=== PATIENT | female | born 1955 | race Asian ===

== ENCOUNTER 2019-02-20 16:14 | Inpatient (IN) | payer OTHER ==
[~2019-02-20] VITALS: Ht 162.6 cm; Wt 71.0 kg
[2019-02-20 16:14] VITALS: Ht 162.6 cm; Wt 71.0 kg
--- NOTE | 2019-02-20 17:43 | NUR ---
IV ESTABLISHED 20G TO LAC BLOOD COLLECTED AT THE SAME TIME FOR LAB TEST. IV FLUSHED WITH 10CC NS WITH NO PROBLEM
--- NOTE | 2019-02-20 17:43 | NUR ---
EKG IN PROGRESS
[2019-02-20 17:51] LABS: BASOPHIL % 0.6 % (0-2); PLATELET COUNT 212 x10^3mcL (130-400); RED CELL DISTRIBUTION WIDTH 13.1 % (11.5-14.5)
[2019-02-20 18:02] LABS: CALCIUM 9.3 mg/dL (8.5-10.1); CARBON DIOXIDE 27.1 mmol/L (21-32); CHLORIDE SERUM 105 mmol/L (98-107); CREATININE SERUM 0.8 mg/dL (0.6-1.0); GFR1 > 60 mL/min; GLUCOSE SERUM 98 mg/dL (74-106); POTASSIUM SERUM 4.4 mmol/L (3.5-5.1); SODIUM SERUM 140 mmol/L (136-145)
[2019-02-20 18:08] LABS: ALBUMIN 3.8 g/dL (3.4-5.0); ALKALINE PHOSPHATASE 50 U/L (46-116); ALT/SGPT 30 U/L (14-59); AST/SGOT 17 U/L (15-37); BILIRUBIN TOTAL 0.6 mg/dL (0.20-1.00); TOTAL PROTEIN, SERUM 7.3 g/dL (6.4-8.2)
--- NOTE | 2019-02-20 19:06 | NUR ---
REPORT GIVEN TO BAKARI ANDREWS RESUMING CARE OF PT AT THIS TIME
--- NOTE | 2019-02-20 19:08 | NUR ---
RECEIVED REPORT FROM MELVIN ANDREWS. I WILL RESUME FURTHER CARE OF THIS PATIENT.
--- NOTE | 2019-02-20 19:34 | NUR ---
DR FOLRES AT BEDSIDE DISCUSSING PLAN OF CARE WITH PATIENT.
[2019-02-20] MEDS ORDERED: SYN15 PO (19:57)
[2019-02-20 20:20] LABS: MAGNESIUM 2.1 mg/dL (1.8-2.4); PHOSPHOROUS 3.5 mg/dL (2.5-4.9)
[2019-02-20 20:21] LABS: CHOLESTEROL/HDL RATIO 4.2
--- NOTE | 2019-02-20 20:40 | NUR ---
REPORT GIVEN TO OZZY HENSON.
--- NOTE | 2019-02-20 20:48 | NUR ---
PT TRANSPORTED TO [facility] VIA GURNEY BY BERNARD MCCORMICK. PT IN NAD
[2019-02-20 21:08] VITALS: BP 123/63
--- NOTE | 2019-02-20 21:13 | NUR ---
RECEIVED PT FROM ED VIA BREA. ORIENTED PT TO ROOM AND SURROUNDINGS. IV NOTED TO LAC PATENT AND INTACT. INSTRUCTED PT ON THE USE OF CALL LIGHT FOR ASSISTANCE. ENDORSED PT TO PRIMARY NURSE OZZY
--- NOTE | 2019-02-20 22:07 | NUR ---
RECEIVEDPT FROM SUKUMAR AAOX4, PT DENY PAIN AT THE MOMENT , RIGHT ELBOW AND RIGHT KNEE WITH ABRASION 3D ARTIST, CALL LIGHT WITHIN PT'S REACH , ORIENTED PT TO THE ROOM .
--- NOTE | 2019-02-21 00:19 | NUR ---
PT'S IN BED WITH EYES CLOSED .
--- NOTE | 2019-02-21 01:30 | NUR ---
16FR GREWAL CATH INSERTED , PT TOLERATED WELL CLEAR URINE NOTED, UA SENT TO THE LAB ORDERED .
[2019-02-21 02:12] LABS: microscopic required? NO
[2019-02-21 02:29] LABS: UA SPECIFIC GRAVITY 1.025 (1.005-1.035); urine erythrocyte NEGATIVE (NEGATIVE)
[2019-02-21 05:33] VITALS: BP 123/61
--- NOTE | 2019-02-21 06:01 | NUR ---
POST ATIVAN BP 168/117 HR 108, PAGED DR MALIK
--- NOTE | 2019-02-21 06:24 | NUR ---
NO CHANGES OF CONDITION NOTED, GREWAL TO GRAVITY DRAINING WELL HL INTACT FLUSHING WELL .
[2019-02-21 06:38] LABS: BASOPHIL % 0.3 % (0-2); PLATELET COUNT 192 x10^3mcL (130-400); RED CELL DISTRIBUTION WIDTH 12.9 % (11.5-14.5)
[2019-02-21 06:55] LABS: CALCIUM 8.7 mg/dL (8.5-10.1); CARBON DIOXIDE 24.2 mmol/L (21-32); CHLORIDE SERUM 106 mmol/L (98-107); CREATININE SERUM 0.7 mg/dL (0.6-1.0); GFR1 > 60 mL/min; GLUCOSE SERUM 97 mg/dL (74-106); POTASSIUM SERUM 3.9 mmol/L (3.5-5.1); SODIUM SERUM 143 mmol/L (136-145)
--- NOTE | 2019-02-21 07:49 | NUR ---
ASSUMED CARE OF PATIENT. ALERT AND ORIENTED X4. S1 S2 SOUDNS NOTED. PULSES PALPABLE BILATERALLY. NO EDEMA NOTED. LUNG SOUDNS CLEAR TO ROOM AIR, NO ADVENTITIOUS BREATH SOUNDS BILATERALLY. GREWAL DRAINING YELLOW URINE. WEAKNESS TO RIGHT LEG AND HIP. ABRAISION ON RIGHT ELBOW AND RIGHT KNEE OPEN TO AIR. NO COMPLAINTS OF PAIN. IV ON RAC PATENT AND INTACT. NONSKID SOCKS IN PLACE. BED LOCKED AND IN LOWEST POSITION. CALL LIGHT WITHIN REACH. WILL CONTINUE TO MONITOR.
--- NOTE | 2019-02-21 09:29 | NUR ---
SURIGCAL SITE (RIGHT HIP) INITIALED BY PATIENT .
--- NOTE | 2019-02-21 09:39 | NUR ---
PATIENT SEEN RESTING IN BED WITH EQUAL AND UNLABORED RESPIRATIONS.
[2019-02-21 09:57] VITALS: BP 123/66
[2019-02-21 10:46] LABS: HCG SERUM QUALITATIVE NEGATIVE; HCG SERUM QUANTITATIVE 2 mIU/mL
--- NOTE | 2019-02-21 11:20 | NUR ---
CHX WIPES PROVIDED, PATIENT WIPED FOR SURGERY PREP.
--- NOTE | 2019-02-21 11:31 | NUR ---
PRN MORPHINE PROVIDED FOR 9/10 RIGHT HIP PAIN.
--- NOTE | 2019-02-21 15:59 | NUR ---
REPORT FROM OR NURSE S/P PINNING OF RIGHT HIP. [address], GENERAL ANESTHESIA, EBL 75 ML, IVF 1500 ML, GREWAL OUTPUT 100 ML, SURGICAL INCISION ON RIGHT HIP COVERED WITH ADAPTIC AND 4X4 DRESSING, PICTURE OF WOUND TAKEN. VSS. ON 2L NC FOR LOW O2 SAT, CURRENTLY 95%. PATIENT DROWSY WITH NO COMPLAINTS OF PAIN.
--- NOTE | 2019-02-21 16:17 | NUR ---
PATIENT RETURN FROM OR. NO COMPLAINTS OF PAIN OR DISCOMFORT. EPISODE OF EMESIS OF SALIVA. NO LONGER NAUSEOUS. DRESSING CLEAN DRY INTACT, NO DRAINAGE NOTED. PATIENT ALERT AND ORIENTED X4. NO DIZZINESS OR HEADACHE, REPORTING MILD DROWSINESS. DORSALIS PEDIS PULSE PALPABLE AND +2 QUALITY AND EQUAL BILATERALLY. WILL CONTINUE TO MONITOR.
[2019-02-21 16:37] VITALS: BP 140/77
[2019-02-21 17:16] VITALS: BP 120/68
--- NOTE | 2019-02-21 18:41 | NUR ---
BLADDER TRAINING INITIATED AT 1830. GREWAL KINKED. EDUCATED PATIENT ON BLADDER TRAINING AND TO REPORT TO RN IF ANY URGENCY TO URINATE IS PRESENT.
--- NOTE | 2019-02-21 18:47 | NUR ---
PATIENT SEEN RESTING IN BED WITH EQUAL AND UNLABORED RESPIRATIONS. DRESSING TO RIGHT HIP REMAINS CLEAN DRY AND INTACT. NO NEW ISSUES. WILL ENDORSE CARE TO ONCOMING RN.
--- NOTE | 2019-02-21 19:32 | NUR ---
SHIFT REASSESSMENT DONE.PATIENT ALERT AND ORIENTED.BREATHING EASY.GEN WEAKNESS,S/P FALL ALSO HAD R HIP PINNING TODAY.RAVEN LAC.MEDSUAMANDA LANIER.URI,BLADDER TRAINING IN PROGRESS,WILL REMOVED IN AT 7 AM.MAKE NEEDS KNOWN TO STAFF.CALL LIGHT IN REACH.
--- NOTE | 2019-02-21 22:25 | NUR ---
PM MEDS GIVEN ATB WITH NO INCIDENT,EXTENSION TUBING APPLIED.HAD PAIN PILL,OFFERED TO HER.R HIP DRESSING INTACT.
--- NOTE | 2019-02-21 23:10 | NUR ---
PATIENT CHECKED AT INTERVALS,CALL LIGHT IN REACH.
--- NOTE | 2019-02-22 03:00 | NUR ---
CHECKED AT INTERVALS.BLADDER TRAINING.
--- NOTE | 2019-02-22 05:13 | NUR ---
I AND O MEASURED.NO DISTRESS THIS SHIFT.WILL ENDORSE TO NEXT SHIFT.
[2019-02-22 06:04] VITALS: BP 128/60
[2019-02-22 06:18] LABS: BASOPHIL % 0.3 % (0-2); PLATELET COUNT 188 x10^3mcL (130-400); RED CELL DISTRIBUTION WIDTH 12.5 % (11.5-14.5)
[2019-02-22 06:25] LABS: CALCIUM 8.8 mg/dL (8.5-10.1); CARBON DIOXIDE 24.9 mmol/L (21-32); CHLORIDE SERUM 106 mmol/L (98-107); CREATININE SERUM 0.6 mg/dL (0.6-1.0); GFR1 > 60 mL/min; GLUCOSE SERUM 123 mg/dL (74-106); SODIUM SERUM 141 mmol/L (136-145)
--- NOTE | 2019-02-22 07:45 | NUR ---
PATIENT RESTING IN BED, NO ACUTE DISTRESS NOTED. DENIES SOB, ON ROOM AIR. SCDS IN PLACE. PATIENT STATES SHE HAS NOT HAD A BM, BUT IS PASSING GAS. DRESSING TO RIGHT HIP, CDI, NO DRAINAGE NOTED. PATIENT STATES HER PAIN IS 06/10, PATIENT STATES PAIN IS TOLERABLE. REPOSITION PATIENT TO PROVIDE COMFORT. EDUCATED PATIENT ON PAIN MANAGEMENT. IV TO LAC, SALINE LOCK, NO S/S OF INFILTRATION. CALL LIGHT WITHIN REACH, BED IN LOW POSITION, WILL CONTINUE TO MONITOR FOR CHANGES.
--- NOTE | 2019-02-22 08:43 | NUR ---
PHYSICAL THERAPY AT BEDSIDE.
[2019-02-22 09:00] VITALS: BP 103/48
--- NOTE | 2019-02-22 13:25 | NUR ---
ASSISTED PATIENT ON BEDPAN, PATIENT C/O MODERATE PAIN 03/19 TO RIGHT HIP. PATIENT STATES HER PAIN WAS TOLERABLE AND ONLY INCREASED WITH MOVEMENT. WILL CONTINUE TO MONITOR PATIENT. CALL LIGHT WITHIN REACH, BED IN LOW POSITION FOR SAFETY PRECAUTION.
--- NOTE | 2019-02-22 13:30 | NUR ---
PHYSICAL THERAPY AT BEDSIDE.
--- NOTE | 2019-02-22 15:10 | NUR ---
PATIENT RESTING IN BED. FAMILY AT BEDSIDE. NO ACUTE DISTRESS NOTED AT THIS TIME. PATIENT C/O OF DISCOMFORT TO RIGHT HIP, PATIENT STATES PAIN IS TOLERABLE, REPOSITIONED PATIENT FOR COMFORT. CALL LIGHT WITHIN REACH, BED IN LOW POSITION, WILL CONTINUE TO MONITOR PATIENT.
[2019-02-22 17:42] VITALS: BP 123/65
--- NOTE | 2019-02-22 18:10 | NUR ---
PATIENT RESTING IN BED. NO ACUTE DISTRESS NOTED. DENIES SOB. PT STATES DISCOMFORT TO RIGHT HIP, BUT IS TOLERABLE. REPOSITIONED PATIENT FOR COMFORT. FAMILY AT BEDSIDE. IV TO LAC SALINE LOCK, NO S/S OF INFILTRATION. CALL LIGHT WITHIN REACH, BED IN LOW POSITION FOR SAFETY PRECAUTION. WILL ENDORSE REPORT TO NIGHT RN.
--- NOTE | 2019-02-22 19:28 | NUR ---
SHIFT REASSESSMENT DONE.PATIENT ALERT AND ORIENTED.MAKE NEEDS KNOWN.BREATHING EASY.PHYSICAL THERAPY,AMBULATED WITH THEM TODAY,TOLERATED WELL.HEPLOCK LAC,MEDSURG PATIENT.R HIP DRESSING INTACT.ON HEPARIN SQ.CALL LIGHT IN REACH.
[2019-02-22 20:58] VITALS: BP 136/62
--- NOTE | 2019-02-22 21:17 | NUR ---
PATIENT HAD HER HEPARIN,WANTING PAIN PILL AND GIVEN,SWALLOWS WELL.
--- NOTE | 2019-02-23 02:13 | NUR ---
USING BEDPAN,ASSIST.LARGE AMOUNT OF URINE,REQUESTING PAIN PILL AND GIVEN.CALL LIGHT IN REACH.
--- NOTE | 2019-02-23 05:15 | NUR ---
I AND O MEASURED.NO DISTRESS THIS SHIFT.AM MEDS TO GIVE.
[2019-02-23 05:44] LABS: BASOPHIL % 0.2 % (0-2); PLATELET COUNT 174 x10^3mcL (130-400); RED CELL DISTRIBUTION WIDTH 12.6 % (11.5-14.5)
[2019-02-23 06:05] VITALS: BP 147/74
[2019-02-23 06:11] LABS: CALCIUM 8.7 mg/dL (8.5-10.1); CARBON DIOXIDE 26.5 mmol/L (21-32); CHLORIDE SERUM 107 mmol/L (98-107); CREATININE SERUM 0.7 mg/dL (0.6-1.0); GFR1 > 60 mL/min; GLUCOSE SERUM 100 mg/dL (74-106); MAGNESIUM 1.9 mg/dL (1.8-2.4); PHOSPHOROUS 2.8 mg/dL (2.5-4.9); POTASSIUM SERUM 4.2 mmol/L (3.5-5.1); SODIUM SERUM 144 mmol/L (136-145)
--- NOTE | 2019-02-23 06:47 | NUR ---
WILL ENDORSE TO NEXT SHIFT.CALL LIGHT IN REACH.
--- NOTE | 2019-02-23 07:08 | NUR ---
RECEIVED PT FROM CLAY MODELER NURSE. PT RESTING IN BED, AOX4, RESP EVEN AND UNLABORED ON RA. NO ACUTE DISTRESS NOTED AT THIS TIME. R HIP DRESSING CDI. IV SALINE LOCK TO LAC W/ NO ERYTHEMA OR EDEMA. BED IN LOWEST POSITION AND CALL LIGHT WITHIN REACH. WILL CONTINUE TO MONITOR.
[2019-02-23 08:21] VITALS: BP 122/67
[2019-02-23 11:43] VITALS: BP 132/72
--- NOTE | 2019-02-23 12:38 | NUR ---
PT RESTING IN BED, AOX4. HAD BASIN PLACED IN FRONT OF HER, STATED SHE FELT NAUSEA AFTER DRINKING SMALL AMOUNT OF FLUIDS. NO EMESIS NOTED. NO REQUEST FOR MEDS AT THIS TIME. DENIES PAIN. MAINTAINED HOB AT 30 DEGREES, SIDE RAILS UPX3. ENCOURAGED TO REST AND EAT LUNCH TOLERATED WHEN ABLE AND TO REPORT ANY WORSENING SYTMPTOMS. BED IN LOWEST POSITION AND CALL LIGHT WITHIN REACH. VISITOR AT BEDSIDE. WILL CONTINUE TO MONITOR.
[2019-02-23 16:15] VITALS: BP 140/76
--- NOTE | 2019-02-23 17:50 | NUR ---
PT RESTING IN BED, AOX4, RESP EVEN AND UNLABORED ON RA. DENIED PAIN AT THIS TIME BUT REPORTED FEELING NAUSEA, NO EMESIS NOTED. MEDICATED ORDERED W/ ZOFRAN. IV SALINE LOCK TO LFA W/ NO ERYTHEMA OR EDEMA. BED IN LOWEST POSITION AND CALL LIGHT WITHIN REACH. WILL ENDORSE TO ONCOMING NURSE.
--- NOTE | 2019-02-23 19:30 | NUR ---
AOX4. MED SURG. LUNGS CLEAR ON RA. PULSES PALPABLE. NO EDEMA. BOWEL SOUNDS ACTIVE. VOIDS FREELY. DRESSING TO R HIP S/P ORIF. C/O INCISIONAL PAIN 01/17, DOES NOT WISH TO BE MEDICATED AT THIS TIME. SL TO INA, PATENT, CDI. BED IN LOWEST POSITION, 2 SIDE RAILS UP, CALL LIGHT IN REACH. INSTRUCTED TO CALL FOR ASSISTANCE.
[2019-02-23 20:18] VITALS: BP 130/68
--- NOTE | 2019-02-24 01:01 | NUR ---
RESTING IN BED WITH EYES CLOSED. BREATHING E/U ON RA. NO ACUTE DISTRESS NOTED. WILL CONTINUE TO MONTIOR.
[2019-02-24 04:08] VITALS: BP 140/80
--- NOTE | 2019-02-24 06:00 | NUR ---
NO ACUTE DISTRESS NOTED. NO ACUTE CHANGES. R HIP PAIN WELL CONTROLLED BY NORCO X 1. WILL ENDORSE TO ONCOMING RN.
[2019-02-24 06:29] LABS: BASOPHIL % 0.5 % (0-2); PLATELET COUNT 190 x10^3mcL (130-400); RED CELL DISTRIBUTION WIDTH 12.2 % (11.5-14.5)
[2019-02-24 07:02] LABS: CALCIUM 9.5 mg/dL (8.5-10.1); CARBON DIOXIDE 26.7 mmol/L (21-32); CHLORIDE SERUM 104 mmol/L (98-107); CREATININE SERUM 0.7 mg/dL (0.6-1.0); GFR1 > 60 mL/min; GLUCOSE SERUM 92 mg/dL (74-106); POTASSIUM SERUM 3.7 mmol/L (3.5-5.1); SODIUM SERUM 141 mmol/L (136-145)
--- NOTE | 2019-02-24 07:04 | NUR ---
RECEIVED PT FROM FIRST BEATER NURSE. PT A0X4, RESP EVEN AND UNLABORED ON RA. NO ACUTE DISTRESS NOTED. DENIES PAIN OR NAUSEA AT THIS TIME. IV SALINE LOCK TO LFA W/ NO ERYTHEMA OR EDEMA. BED IN LOWEST POSITION AND CALL LIGHT WITHIN REACH. WILL CONTINUE TO MONITOR.
[2019-02-24 10:00] VITALS: BP 119/64
--- NOTE | 2019-02-24 12:35 | NUR ---
PT IN BED HAVING LUNCH. AOX4. NO ACUTE DISTRESS NOTED. DENIES PAIN OR NAUSEA AT THIS TIME. BED IN LOWEST POSITON AND CALL LIGHT WITHIN REACH. VISITOR AT BEDSIDE. WILL CONTINUE TO MONITOR.
[2019-02-24 13:24] VITALS: BP 119/64
--- NOTE | 2019-02-24 17:45 | NUR ---
PT RESTING IN BED, AOX4 RESP EVEN ADN UNLABORED ON RA. GIVEN NORCO AT THIS TIME FOR R HIP PAIN RATED 6/10. BED IN LOW AND CALL LIGHT WITHIN REACH. WILL ENDORSE TO ONCOMING NURSE.
[2019-02-24 17:46] VITALS: BP 124/72
--- NOTE | 2019-02-24 19:46 | NUR ---
AOX4. MED SURG. LUNGS CLEAR ON RA. PULSES PALPABLE. NO EDEMA. BOWEL SOUNDS ACTIVE. VOIDS FREELY. DRESSING TO R HIP S/P ORIF. C/O INCISIONAL PAIN 12/17, DOES NOT WISH TO BE MEDICATED AT THIS TIME. SL TO INA, PATENT, CDI. BED IN LOWEST POSITION, 2 SIDE RAILS UP, CALL LIGHT IN REACH. INSTRUCTED TO CALL FOR ASSISTANCE.
--- NOTE | 2019-02-24 20:20 | NUR ---
DISCHARGE PAPERWORK SIGNED AND GIVEN TO PT. IV D/C INTACT. PT IN NO ACUTE DISTRESS. EN ROUTE TO ELY GEORGE.
== END 2019-02-24 20:24 | DRG 482 ==
LOC: ED 16:14 → MU 19:39
PROVIDERS: Emergency Medicine; Neuromusculoskeletal Medicine, Sports Medicine; ADMIT Internal Medicine
PROC: 0QS604Z Reposition Right Upper Femur with Internal Fixation Device, Open Approach (ICD-10-PCS; principal; 2019-02-21 14:00)
DX: S72.011A Unspecified intracapsular fracture of right femur, initial encounter for closed fracture (principal); R73.03 Prediabetes; E78.5 Hyperlipidemia, unspecified; E03.9 Hypothyroidism, unspecified; W18.39XA Other fall on same level, initial encounter; Y93.89 Activity, other specified; Y92.89 Other specified places as the place of occurrence of the external cause; Z68.26 Body mass index [BMI] 26.0-26.9, adult
CPT/HCPCS: 97110-GP; 97116-GP; 97530-GP; C1713; J0690; J1644; J2175; J2250; J2270; J2405; J2704; J3010; J3490; J7050; J7120; Q0092